=== PATIENT | female | born 1940 | race Caucasian/White ===

== ENCOUNTER → 2016-08-10 | Outpatient (CLI) | payer MEDICARE ==
[~2016-08-10] MED LIST: ATOR20TA59 PO; CARV3.1227 PO; HYDR-2164 PO; LISI10TA7 PO; RIVA20TA PO; SITA100T12 PO
--- NOTE | 2016-08-11 08:00 | DI ---
INDICATION: ITS.REASON: 786.2 COUGH, R05 COUGH PROCEDURE: CHEST 2-VIEWS UPRIGHT (PA \T\ LAT) Encounter: Initial COMPARISON: June 19, 2014 FINDINGS: The lungs are clear without evidence of focal abnormal airspace opacity. There is no pleural effusion or pneumothorax. The heart size, mediastinal contours and pulmonary vascularity are within normal limits. There is no significant skeletal abnormality. IMPRESSION: No acute cardiopulmonary disease. .
== END ==
LOC: IMA 18:12
PROVIDERS: ATTEND Family Medicine
DX: R05 Cough (principal)